=== PATIENT | female | born 1940 | race Caucasian/White ===

== ENCOUNTER 2017-05-20 16:51 | Emergency (ER) | payer MEDICARE, OTHER ==
[~2017-05-20] VITALS: Ht 157.5 cm; Wt 50.0 kg
[~2017-05-20 16:51] MED LIST: ALEN70SO3 PO; AMLO-147 PO; CLOP75TA4 PO; LEVO125T58 PO; METO100T PO; NAPR-688 PO; NIT4; OMEP40CA6 PO; POLY17PO6 PO; SIMV40TA3 PO; TRAM100T2 PO
[2017-05-20 17:00] VITALS: Ht 157.5 cm; Wt 50.0 kg
[2017-05-20 19:56] LABS: BASOPHILS % 0.2 % (0.0-2.0); EOSINOPHILS # 0.1 10^3/ul (0.0-0.5); EOSINOPHILS % 0.9 % (0.0-7.0); HEMATOCRIT 27.8 % (37.0-47.0); HEMOGLOBIN 8.5 g/dl (12.0-16.0); LYMPHOCYTES # 2.9 10^3/ul (0.8-2.9); LYMPHOCYTES % 20.7 % (15.0-51.0); MEAN CORPUSCULAR HEMOGLOBIN 26.5 pg (29.0-33.0); MEAN CORPUSCULAR HGB CONC 30.6 g/dl (32.0-37.0); MEAN CORPUSCULAR VOLUME 86.6 fl (82.0-101.0); MEAN PLATELET VOLUME 11.2 fl (7.4-10.4); MONOCYTE # 1.1 10^3/ul (0.3-0.9); MONOCYTES % 7.5 % (0.0-11.0); NEUTROPHILS % 70.3 % (39.0-77.0); PLATELET COUNT 184 10^3/UL (140-415); RED BLOOD COUNT 3.21 10^6/ul (4.20-5.40); RED CELL DISTRIBUTION WIDTH 14.3 % (11.5-14.5)
[2017-05-20 20:11] LABS: INR 0.99; PARTIAL THROMBOPLASTIN TIME 25.2 Sec (25.0-35.0); PROTIME 13.1 Sec (12.2-14.2)
[2017-05-20 20:22] LABS: ALBUMIN 3.9 g/dl (3.3-4.9); ALBUMIN/GLOBULIN RATIO 1.21; BILIRUBIN,INDIRECT 0.9 mg/dl (0-1.1); BILIRUBIN,TOTAL 0.9 mg/dl (0.2-1.3); CALCIUM 9.2 mg/dl (8.4-10.2); CREATININE 1.23 mg/dl (0.44-1.00); POTASSIUM 4.3 mmol/L (3.5-5.1); TOTAL PROTEIN 7.1 g/dl (6.1-8.1)
--- NOTE | 2017-05-20 20:59 | RADRPT ---
PROCEDURE: XR Femur. CLINICAL INDICATION: Trauma TECHNIQUE: Two views of the right femur were performed. COMPARISON: No pertinent prior examinations were submitted for comparison. FINDINGS: There is normal bone mineralization.There is no acute fracture or dislocation.No osseous lesion is i dentified. There is no soft tissue swelling. IMPRESSION: No acute fracture or dislocation. RPTAT: HIKT .Antony Terry MD, MD Date Time Electronically viewed and signed by .Antony Terry MD, on 05/20/2017 20:59 .T/
[2017-05-20] MEDS ORDERED: SOD CHLORIDE 0.9% 500 ML IV ONE (21:07)
--- NOTE | 2017-05-20 21:07 | ERD ---
ER Documentation Chief Complaint Date/Time DATE: 05/20/17 TIME: 21:02 Chief Complaint loki fall, has right hip/leg margo n HPI 76-year-old female tripped and hit her right thigh 2 days ago. She has a large area of ecchymosis and bruising on the right thigh extending right [place] and calf to her foot. She was referred by primary doctor for concern about the amount of ecchymosis given that she is on the blood thinner EFFIENZ. Denies shortness breath, chest pain, dizziness. Does have pain in her thigh where she sustained a contusion. ROS All systems reviewed and are negative except as per history of present illness. Medications Home Meds Active Scripts Polyethylene Glycol* (Miralax*) 17 Gm Powd.pack, 17 GM PO DAILY, #7 Prov:JOSIE FENTON DO 12/03/15 Reported Medications Naproxen* (Naproxen*) 500 Mg Tablet, 500 MG PO BID 05/17/13 Alendronate Sodium* (Alendronate Sodium* Liq) 70 Mg/75 Ml Solution, 70 MG PO QWEEKLY 05/17/13 Nitroglycerin* (Nitrostat*) 0.4 Mg Tab.subl, 0.4 MG .ROUTE Q5MIN PRN FOR CHEST PAIN 05/17/13 Omeprazole* (Omeprazole*) 40 Mg Capsule.dr, 40 MG PO DAILY 05/17/13 Metoprolol (Lopressor) 100 Mg Tablet, 100 MG PO DAILY 05/17/13 Simvastatin (Simvastatin) 40 Mg Tablet, 40 MG PO DAILY 05/17/13 Tramadol Hcl* (Tramadol* ER) 100 Mg Tab.er.24h, 100 MG PO Q6 NEEDED FOR PAIN 05/17/13 Clopidogrel Bisulfate* (Clopidogrel Bisulfate*) 75 Mg Tablet, 75 MG PO DAILY 05/17/13 Levothyroxine Sodium (Levothroid) 125 Mcg Tablet, 125 MCG PO DAILY 05/17/13 Amlodipine Besylate* (Amlodipine Besylate*) 10 Mg Tablet, 10 MG PO DAILY 05/17/13 Allergies Allergies: Coded Allergies: Penicillins (Verified Allergy, Unknown, 08/04/09) PMhx/Soc History of Surgery: Yes (cholecystectomy, right inguinal hernia repair, right foot mass excision) Anesthesia Reaction: No Hx Neurological Disorder: Yes (vertigo) Hx Respiratory Disorders: No Hx Cardiac Disorders: Yes (CAD/AMI S/P stent x4, HTN, DYSLIPIDEMIA) Hx Psychiatric Problems: No Hx Miscellaneous Medical Probl: No Hx Alcohol Use: No Hx Substance Use: No Hx Tobacco Use: No Physical Exam Vitals Vital Signs Date Time Temp Pulse Resp B/P Pulse Ox O2 Delivery O2 Flow Rate FiO2 05/20/17 17:00 98.1 56 18 120/54 99 Physical Exam Const: []Alert, pleasant, [id number] per Head: Atraumatic Eyes: Normal Conjunctiva ENT: Normal External Ears, Nose and Mouth. Neck: Full range of motion..~ No meningismus. Resp: Clear to auscultation bilaterally Cardio: Regular rate and rhythm, no murmurs Abd: Soft, non tender, non distended. Normal bowel sounds Skin: No petechiae or rashes Back: No midline or flank tenderness Ext: No cyanosis, or edema. There is some ecchymosis extending from a hematoma on her right lateral thigh. There is no appreciable fluctuance. There is no appreciable calf swelling or Homans sign noted evidence of ischemia as Refill is less than 2 seconds. There is no warmth or erythema. Neur: Awake and alert Psych: Normal Mood and Affect Result Diagram: 05/20/17194405/20/171944 Results 24 hrs Laboratory Tests Test 05/20/17 19:45 White Blood Count 14.010^3/ul Red Blood Count 3.2110^6/ul Hemoglobin 8.5g/dl Hematocrit 27.8% Mean Corpuscular Volume 86.6fl Mean Corpuscular Hemoglobin 26.5pg Mean Corpuscular Hemoglobin Concent 30.6g/dl Red Cell Distribution Width 14.3% Platelet Count 19733^3/UL Mean Platelet Volume 11.2fl Neutrophils % 70.3% Lymphocytes % 20.7% Monocytes % 7.5% Eosinophils % 0.9% Basophils % 0.2% Nucleated Red Blood Cells % 0.0/100WBC Neutrophils # (Manual) 9.810^3/ul Lymphocytes # 2.910^3/ul Monocytes # 1.110^3/ul Eosinophils # 0.110^3/ul Basophils # 0.010^3/ul Nucleated Red Blood Cells # 0.010^3/ul Prothrombin Time 13.1Sec Prothrombin Time Ratio 1.0 INR International Normalized Ratio 0.99 Activated Partial Thromboplast Time 25.2Sec Sodium Level 141mmol/L Potassium Level 4.3mmol/L Chloride Level 105mmol/L Carbon Dioxide Level 26mmol/L Anion Gap 14 Blood Urea Nitrogen 29mg/dl Creatinine 1.23mg/dl Glucose Level 114mg/dl Calcium Level 9.2mg/dl Total Bilirubin 0.9mg/dl Direct Bilirubin 0.00mg/dl Indirect Bilirubin 0.9mg/dl Aspartate Amino Transf (AST/SGOT) 29IU/L Alanine Aminotransferase (ALT/SGPT) 28IU/L Alkaline Phosphatase 76IU/L Total Protein 7.1g/dl Albumin 3.9g/dl Globulin 3.20g/dl Albumin/Globulin Ratio 1.21 Procedures/MDM CBC shows a white blood cell count of 14, which I suspect is dilutional given no evidence of infection. Hemoglobin is an 8.5. PT PTT normal. BUN and [id number] 1.23.. Patient given normal saline 500 cc IV for signs of renal insufficiency. AP/lateral 2 view right femur shows no fractures, no dislocations. Impression- normal right femur x-ray Patient presents with a right thigh hematoma and ecchymosis extending from mechanical fall 2 days ago. There is no evidence of tachycardia, chest pain or shortness of breath or symptomatic anemia. Clinically the ecchymosis appears to have stabilized. Recommending a recheck in 48 hours of her hemoglobin otherwise rest and elevate at home. She should return sooner for shortness of breath, chest pain, dizziness, new worsening symptoms otherwise in 2 days as directed. Departure Diagnosis: Primary Impression: Contusion Encounter type: initial encounter Contusion area: thigh Laterality: right Qualified Code: S70.11XA - Contusion of right thigh, initial encounter Additional Impression: Hematoma Condition: Stable Patient Instructions: Contusion, Soft Tissue, Contusion, Lower Extremity Additional Instructions: X-ray appears normal. Contusion appears to be stable recommend rest and elevate at home and recheck blood work in 48 hours. Recheck otherwise for dizziness, chest pain, shortness breath, new or worsening symptoms. DEBBIE BERMEO MD May 20, 2017 21:07
== END 2017-05-20 22:12 | disposition home or self-care (01) ==
LOC: FTE 16:51
DX: S70.11XA Contusion of right thigh, initial encounter (principal); I25.10 Atherosclerotic heart disease of native coronary artery without angina pectoris; I10 Essential (primary) hypertension; W01.198A Fall on same level from slipping, tripping and stumbling with subsequent striking against other object, initial encounter; Y92.9 Unspecified place or not applicable; Z98.61 Coronary angioplasty status
CPT/HCPCS: 36415; 73550; 80053; 85025; 85610; 85730; 99284; J7030

== ENCOUNTER 2017-05-22 09:20 | Emergency (ER) | payer MEDICARE, OTHER ==
[~2017-05-22] VITALS: Ht 162.6 cm; Wt 46.5 kg
[2017-05-22 09:29] VITALS: Ht 162.6 cm; Wt 46.5 kg
--- NOTE | 2017-05-22 10:56 | ERD ---
ER Documentation Chief Complaint Date/Time DATE: 05/22/17 TIME: 10:54 Chief Complaint RIGHT KNEE PAIN,RECHECK BLOOD WORK DIRECTED BY ER MD DUARTE 76-year-old female currently taking Effient comes to emergency room for recheck of the hematoma status post fall that occurred 2 days ago and is here for repeat hemoglobin. Patient states that she had tripped, hit the right lateral leg, x-rays of the femur were normal. She presents with a large contusion and ecchymosis that extends down her leg. She denies any head injury, headache, loss of consciousness. Patient states that her pain is under control, she is ambulatory. ROS All systems reviewed and are negative except as per history of present illness. Medications Home Meds Active Scripts Polyethylene Glycol* (Miralax*) 17 Gm Powd.pack, 17 GM PO DAILY, #7 Prov:JOSIE FENTON DO 12/03/15 Reported Medications Naproxen* (Naproxen*) 500 Mg Tablet, 500 MG PO BID 05/17/13 Alendronate Sodium* (Alendronate Sodium* Liq) 70 Mg/75 Ml Solution, 70 MG PO QWEEKLY 05/17/13 Nitroglycerin* (Nitrostat*) 0.4 Mg Tab.subl, 0.4 MG .ROUTE Q5MIN PRN FOR CHEST PAIN 05/17/13 Omeprazole* (Omeprazole*) 40 Mg Capsule.dr, 40 MG PO DAILY 05/17/13 Metoprolol (Lopressor) 100 Mg Tablet, 100 MG PO DAILY 05/17/13 Simvastatin (Simvastatin) 40 Mg Tablet, 40 MG PO DAILY 05/17/13 Tramadol Hcl* (Tramadol* ER) 100 Mg Tab.er.24h, 100 MG PO Q6 NEEDED FOR PAIN 05/17/13 Clopidogrel Bisulfate* (Clopidogrel Bisulfate*) 75 Mg Tablet, 75 MG PO DAILY 05/17/13 Levothyroxine Sodium (Levothroid) 125 Mcg Tablet, 125 MCG PO DAILY 05/17/13 Amlodipine Besylate* (Amlodipine Besylate*) 10 Mg Tablet, 10 MG PO DAILY 05/17/13 Allergies Allergies: Coded Allergies: Penicillins (Verified Allergy, Unknown, 08/04/09) PMhx/Soc History of Surgery: Yes (cholecystectomy, right inguinal hernia repair, right foot mass excision) Anesthesia Reaction: No Hx Neurological Disorder: Yes (vertigo) Hx Respiratory Disorders: No Hx Cardiac Disorders: Yes (CAD/AMI S/P stent x4, HTN, DYSLIPIDEMIA) Hx Psychiatric Problems: No Hx Miscellaneous Medical Probl: No Hx Alcohol Use: No Hx Substance Use: No Hx Tobacco Use: No Physical Exam Vitals Vital Signs Date Time Temp Pulse Resp B/P Pulse Ox O2 Delivery O2 Flow Rate FiO2 05/22/17 09:29 98.9 101 18 149/70 100 Physical Exam General: Well-developed, well-nourished. The patient appears in no acute distress. HEENT: Head is normocephalic, atraumatic. No scleral icterus. Pupils are equal , round, and reactive. Oral mucous membranes are moist. No pharyngeal erythema. Neck: Supple. Nontender. Lungs: Clear to auscultation. Normal air movement. Heart: Regular rate and rhythm. S1 and S2 are normal. No murmurs, gallops, or rubs. Abdomen: Soft, nontender, nondistended. Bowel sounds are normoactive. Extremities: Large hematoma on the right lateral upper leg. Compartments are soft. Ecchymosis extends on her lower extremity. Neurologic: Alert and oriented 3. No focal deficits. Skin: Normal turgor. No rash or lesions. Result Diagram: 05/22/17 1138 Results 24 hrs Laboratory Tests Test 05/22/17 11:38 White Blood Count 10.610^3/ul Red Blood Count 3.6810^6/ul Hemoglobin 9.9g/dl Hematocrit 32.1% Mean Corpuscular Volume 87.2fl Mean Corpuscular Hemoglobin 26.9pg Mean Corpuscular Hemoglobin Concent 30.8g/dl Red Cell Distribution Width 14.1% Platelet Count 66963^3/UL Mean Platelet Volume 11.4fl Neutrophils % 64.5% Lymphocytes % 25.9% Monocytes % 7.4% Eosinophils % 1.1% Basophils % 0.4% Nucleated Red Blood Cells % 0.0/100WBC Neutrophils # (Manual) 6.810^3/ul Lymphocytes # 2.810^3/ul Monocytes # 0.810^3/ul Eosinophils # 0.110^3/ul Basophils # 0.010^3/ul Nucleated Red Blood Cells # 0.010^3/ul Procedures/MDM ED course: Patient's EMR is reviewed, x-rays of the femur were obtained that were negative for fracture. CBC shows a hemoglobin of 8.5, hematocrit 27.8. Medical decision makin-year-old female presents with history of a fall that occurred 2 days ago that resulted in a large hematoma of the right leg. An x-ray of the femur were negative for an acute fracture, due to her anemia, hemoglobin of 8.8 the patient was asked to return. Today her hemoglobin is 9.9 , hematocrit 32.1, platelets 211. She does have a hematoma on the right lateral aspect of the upper leg, there is no evidence of compartment syndrome, does not some circumferential, I doubt DVT, infection. Patient stable to be discharged home. The case was reviewed and discussed with Dr. Martin who agrees with the plan of care including labs, treatment, and advanced imaging as appropriate. Patient's blood pressure was elevated (>120/80) but appears stable without evidence of hypertension emergency or urgency. The patient was counseled about the risks of hypertension and urged to pursue outpatient monitoring and therapy within a week with their primary care physician. Departure Diagnosis: Primary Impression: Anemia Additional Impression: Hematoma Condition: ALECIA Foster PA-C May 22, 2017 10:56
[2017-05-22 12:18] LABS: BASOPHILS % 0.4 % (0.0-2.0); EOSINOPHILS # 0.1 10^3/ul (0.0-0.5); EOSINOPHILS % 1.1 % (0.0-7.0); HEMATOCRIT 32.1 % (37.0-47.0); HEMOGLOBIN 9.9 g/dl (12.0-16.0); LYMPHOCYTES # 2.8 10^3/ul (0.8-2.9); LYMPHOCYTES % 25.9 % (15.0-51.0); MEAN CORPUSCULAR HEMOGLOBIN 26.9 pg (29.0-33.0); MEAN CORPUSCULAR HGB CONC 30.8 g/dl (32.0-37.0); MEAN CORPUSCULAR VOLUME 87.2 fl (82.0-101.0); MEAN PLATELET VOLUME 11.4 fl (7.4-10.4); MONOCYTE # 0.8 10^3/ul (0.3-0.9); MONOCYTES % 7.4 % (0.0-11.0); NEUTROPHILS % 64.5 % (39.0-77.0); PLATELET COUNT 211 10^3/UL (140-415); RED BLOOD COUNT 3.68 10^6/ul (4.20-5.40); RED CELL DISTRIBUTION WIDTH 14.1 % (11.5-14.5); WHITE BLOOD COUNT 10.6 10^3/ul (4.8-10.8)
== END 2017-05-22 14:15 | disposition home or self-care (01) ==
LOC: FTE 09:20
DX: D64.9 Anemia, unspecified (principal); I25.10 Atherosclerotic heart disease of native coronary artery without angina pectoris; I10 Essential (primary) hypertension; W01.0XXA Fall on same level from slipping, tripping and stumbling without subsequent striking against object, initial encounter; Y92.9 Unspecified place or not applicable; Z98.61 Coronary angioplasty status
CPT/HCPCS: 36415; 85025; 99283

== ENCOUNTER 2018-05-27 06:54 | Day surgery (SDC) | END 2018-05-27 11:29 | disposition home or self-care (01) ==

== ENCOUNTER → 2019-01-04 | Outpatient (CLI) | payer MEDICARE, OTHER ==
[~2019-01-04] MED LIST changes: +ASPI-817 PO; +CLOP75TA19 PO; -CLOP75TA4 PO; +ISOS30TA67 PO; -NIT4; +NITR0.4T39; +PRAS10TA6 PO; -TRAM100T2 PO; +TRAM100T33 PO
--- NOTE | 2019-01-04 13:07 | CONS ---
Assessment/Plan Assessment/Plan Hospital Course (Demo Recall) 78-year-old female status post left total knee arthroplasty in 2005 now with 5 years of left total knee pain after some surgery to the left total knee arthroplasty secondary to trauma in [facility]. There are no obvious signs of infection however this does need to be ruled out at this time. Examination is significant for very mild instability which could be related to deconditioning and quad weakness. At this time will rule out infection with ESR, CRP, CBC with differential. If this is positive she will need to return to clinic for aspiration to send to the laboratory as well as alpha defensin. If it is negative for infection will begin physical therapy for the left total knee as well as prescribed a hinged knee brace for stability. Consultation Date/Type/Reason Admit Date/Time Date of Consultation: Jan 04, 2019 Reason for Consultation Left total knee pain Date/Time of Note DATE: 01/04/19 TIME: 12:57 Hx of Present Illness 78-year-old female presents to clinic today for the first time complaining of left total knee arthroplasty pain. She had a left total knee arthroplasty in 2005 by another surgeon. This was done by [facility]. States she was doing really well until 5 years ago when she was visiting [facility] and fell [place]. At that time she was brought to the hospital in [facility] and she had surgery done knee. The patient has no idea what her diagnosis is or what type of surgery they did. She states ever since the surgery 5 years ago her knee has not felt good. She does state it has been swelling at times she notes chills but denies fevers or any other signs of infection. She does have pain radiating down from the knee of the foot with tingling. Most the pain is in the lateral aspect of the knee. She has used Voltaren gel which helps a little bit. Pain is rated 7/10. She does admit to have lower back pain. It is more difficult for her to be on her feet for long peers of time. She can walk 23 blocks. She did not have any therapy since her original injury 5 years ago she does limp at times and needs to use a banister for the stairs. Patient denies fever, shortness of breath, chest pain, nausea/vomiting, constipation, diarrhea, numbness, and tingling. Past Medical History Hypertension Myocardial infarction Heart failure Angina Edema Thyroid abnormality History of blood transfusion Osteoporosis Home Meds Active Scripts Polyethylene Glycol* (Miralax*) 17 Gm Powd.pack, 17 GM PO DAILY, #7 Prov:JOSIE FENTON 12/03/15 Reported Medications Isosorbide Mononitrate* (Isosorbide Mononitrate*) 30 Mg Tab.er.24h, 30 MG PO DAILY, TAB 05/27/18 Prasugrel Hydrochloride* (Effient*) 10 Mg Tablet, 10 MG PO DAILY, TAB 05/27/18 Aspirin* (Aspirin* EC) 81 Mg Tablet.dr, 81 MG PO DAILY, TAB 05/27/18 Naproxen* (Naproxen*) 500 Mg Tablet, 500 MG PO BID 05/17/13 Alendronate Sodium* (Alendronate Sodium* Liq) 70 Mg/75 Ml Solution, 70 MG PO QWEEKLY 05/17/13 Nitroglycerin* (Nitrostat*) 0.4 Mg Tab.subl, 0.4 MG .ROUTE Q5MIN PRN FOR CHEST PAIN 05/17/13 Omeprazole* (Omeprazole*) 40 Mg Capsule.dr, 40 MG PO DAILY 05/17/13 Metoprolol (Lopressor) 100 Mg Tablet, 100 MG PO DAILY 05/17/13 Simvastatin (Simvastatin) 40 Mg Tablet, 40 MG PO DAILY 05/17/13 Tramadol Hcl* (Tramadol* ER) 100 Mg Tab.er.24h, 100 MG PO Q6 NEEDED FOR PAIN 05/17/13 Clopidogrel Bisulfate* (Clopidogrel Bisulfate*) 75 Mg Tablet, 75 MG PO DAILY 05/17/13 Levothyroxine Sodium (Levothroid) 125 Mcg Tablet, 125 MCG PO DAILY 05/17/13 Amlodipine Besylate* (Amlodipine Besylate*) 10 Mg Tablet, 10 MG PO DAILY 05/17/13 Allergies: Coded Allergies: Penicillins (Verified Allergy, Unknown, 08/04/09) Past Surgical History Left total knee arthroplasty 2005. Unknown surgery to left total knee arthroplasty in [facility] around 2014 Left foot surgery July 2018 Family History Significant Family History: no pertinent family hx Social History Alcohol Use: none Smoking Status: Never smoker Drug Use: none Exam/Review of Systems Exam Vitals Weight: 100 pounds Height: 5 foot Temperature: 90.4 Heart Rate: 80 Blood Pressure: 141/60 Respiratory Rate: 12 Exam General: Alert, oriented x3. No Acute Distress. Heart: Regular rate and rhythm. Lungs: No respiratory distress. No accessory muscle use. Left lower Extremity: Midline incision is well-healed. There is also a well-healed curvilinear medial incision from her second surgery. No skin breakdown, no surrounding erythema. Quad atrophy. No joint effusion. Tender to palpation along lateral joint line and IT band. Sensation intact to light touch in a sural, saphenous, deep peroneal, superficial peroneal, medial and lateral plantar nerve distribution. Motor is intact, patient able to dorsiflex and plantarflex ankle and extend and flex great toe. Dorsalis Pedis pulse +2, Brisk capillary refill. Compartments are soft. ROM: Extension: -5 Flexion: 130 Varus/ Valgus Stability: Very subtle instability in extension, flexion, and throughout range of motion A/P Stability: Stable Gait: Moderate pace. antalgic. No gait aid. No thrust. Mild valgus alignment Imaging Imaging Xrays obtained in clinic today and personally reviewed by myself: Bilateral AP and merchant views and a dedicated lateral of the left knee demonstrates left knee s/p TKA. Components in good position and alignment on the AP however on the lateral there is significant anterior slope of the tibia. Questionable lucency around the tibial keel on the lateral. No previous x-rays available for review. No signs of wear, osteolysis, loosening, component failure, or fracture. No acute complications. RONNI DOMINGUEZ MD Jan 04, 2019 13:07
--- NOTE | 2019-01-05 15:40 | RADRPT ---
PROCEDURE: XR Knees. CLINICAL INDICATION: Bilateral knee pain. TECHNIQUE: Total of eight views. Weightbearing frontal, oblique, and lateral views of the both kne es. Patellar views of both knees. COMPARISON: No prior study is available for comparison. FINDINGS: There are moderate degenerative changes of the right knee with medial joint compartment narrowing and small osteophytes. There is a left knee total arthroplasty which appears satisfactory with no fracture, dislocation, or loosening. There is no joint effusion. There is no fracture or dislocation. Vascular calcifications are present consistent with atherosclerosis. There is no lytic lesion. IMPRESSION: 1. Moderate degenerative changes of the right knee. 2. Satisfactory postoperative appearance of the left knee. 3. Atherosclerosis. RPTAT: QQ .Pro White MD, MD Date Time Electronically viewed and signed by .Pro White MD, on 01/05/2019 15:39 .R/
== END | disposition home or self-care (01) ==
LOC: HKI 11:09
PROVIDERS: ATTEND Orthopaedic Surgery Adult Reconstructive Orthopaedic Surgery
DX: Z47.1 Aftercare following joint replacement surgery (principal); M25.562 Pain in left knee; Z96.652 Presence of left artificial knee joint
CPT/HCPCS: 73564; G0463